=== PATIENT | male | born 1965 | race Caucasian/White ===

== ENCOUNTER 2019-09-03 05:51 | Day surgery (SDC) | payer BC ==
[2019-09-03] MEDS ORDERED: GLYCOPYRROLATE 0.2 MG/ML ML IV ONE (05:52)
[2019-09-03] MEDS ORDERED: DEXAMETHASONE 4 MG/ML 1ML VIAL IVP ONE (05:52)
[2019-09-03] MEDS ORDERED: ROPIVACAINE HCL (NAROPIN) /PF 5MG/ML 20ML VIAL IV ONE (05:52)
[2019-09-03] MEDS ORDERED: LIDOCAINE 2% MDV (20MG/ML) 20ML VIAL IV ONE (05:52)
[2019-09-03] MEDS ORDERED: MIDAZOLAM HCL 2MG/2ML VIAL IV ONE (05:52)
[2019-09-03] MEDS ORDERED: PROPOFOL 10 MG/ML VIAL IV ONE (05:52)
[2019-09-03] MEDS ORDERED: METOCLOPRAMIDE 10 MG TABLET PO ONE (06:00)
[2019-09-03] MEDS ORDERED: FAMOTIDINE 20MG TABLET PO ONE (06:00)
[2019-09-03] MEDS ORDERED: ACETAMINOPHEN 500 MG TABLET PO ONE (06:00)
[2019-09-03] MEDS ORDERED: VANCOMYCIN 1GM/200ML PREMIX 1 GM/200 ML PIGGYBACK IVPB ONE (06:00)
[2019-09-03] MEDS ORDERED: CEFAZOLIN 2 Gram 2 GM/50 ML BAG IVPB ONE (06:00)
[2019-09-03] MEDS ORDERED: CEFAZOLIN 1 Gram 1 GM/50 ML BAG IVPB ONE (06:00)
[2019-09-03] MEDS ORDERED: SCOPOLAMINE 1 PATCH TDSY TD ONE (06:00)
[2019-09-03 07:24] LABS: ABO GROUP A
[2019-09-03 07:25] LABS: ANTIBODY SCREEN NEGATIVE (NEGATIVE); RH TYPE NEGATIVE
[2019-09-03] MEDS ORDERED: BISACODYL 10 MG SUPP RC PRN (08:03)
[2019-09-03] MEDS ORDERED: HYDROCODONE/APAP 5/325MG TABLET PO PRN ×2 (08:03)
[2019-09-03] MEDS ORDERED: DIPHENHYDRAMINE HCL 25 MG CAPSULE PO PRN (08:03)
[2019-09-03] MEDS ORDERED: ACETAMINOPHEN W/ CODEINE 300MG/30MG TABLET PO PRN ×2 (08:03)
[2019-09-03] MEDS ORDERED: PROMETHAZINE HCL 25 MG TABLET PO PRN (08:03)
[2019-09-03] MEDS ORDERED: HYDROMORPHONE HCL 2 MG/ML VIAL IM PRN ×2 (08:03)
[2019-09-03] MEDS ORDERED: KETOROLAC 30 MG/ML VIAL IVP PRN (08:03)
[2019-09-03] MEDS ORDERED: ACETAMINOPHEN W/ CODEINE 300MG/60MG TABLET PO PRN (08:03)
[2019-09-03] MEDS ORDERED: ONDANSETRON 4 MG ODT TABLET SL PRN (08:03)
[2019-09-03] MEDS ORDERED: NALOXONE 0.4 MG/1 ML VIAL IVP PRN (08:03)
[2019-09-03] MEDS ORDERED: DEXTROSE 5 % AND 0.9 % NACL 1,000 ML IV PRN (08:03)
[2019-09-03] MEDS ORDERED: ACETAMINOPHEN 325 MG TAB PO PRN (08:03)
[2019-09-03] MEDS ORDERED: TRAMADOL HCL 50 MG TABLET PO PRN ×2 (08:03)
[2019-09-03] MEDS ORDERED: HYDROCODONE/APAP 7.5/325MG TABLET PO PRN (08:03)
[2019-09-03] MEDS ORDERED: MAGNESIUM HYDROXIDE 30 ML UDC PO PRN (08:03)
[2019-09-03] MEDS ORDERED: METOCLOPRAMIDE 10 MG TABLET PO PRN (08:03)
[2019-09-03] MEDS ORDERED: AL HYDROX/MAG HYDROX 30ML UD PO PRN (08:03)
[2019-09-03] MEDS ORDERED: RINGERS SOLUTION,LACTATED 1,000 ML IV ONE ×3 (08:09→09:14)
[2019-09-03] MEDS ORDERED: TRANEXAMIC ACID 1,000 MG/10 ML ML IU ONE (08:31)
[2019-09-03] MEDS ORDERED: BUPIVACAINE LIPOSOME 266MG/20ML VIAL IU ONE (08:31)
[2019-09-03] MEDS ORDERED: BUPIVACAINE 0.5% W/EPI MPF 30 ML VIAL SQ ONE (08:31)
[2019-09-03] MEDS ORDERED: VANCOMYCIN HCL 1 GM VIAL IR ONE (08:31)
[2019-09-03] MEDS ORDERED: TRANEXAMIC ACID 1,000 MG/10 ML ML IVPB ONE (08:31)
[2019-09-03] MEDS ORDERED: VANCOMYCIN HCL 1 GM VIAL IU ONE (08:44)
[2019-09-03] MEDS ORDERED: DOCUSATE SODIUM 100 MG CAPSULE PO SCH (10:00)
[2019-09-03] MEDS ORDERED: VANCOMYCIN 500MG/100ML PREMIX 500 MG/100 ML PIGGYBACK IVPB SCH (11:00)
--- NOTE | 2019-09-03 13:29 | Rehab Evaluation ---
Patient Information - Patient Information Diagnosis: L knee DJD Ordered Treatment: PT Evaluate and Treat Status: Initial Evaluation Surgery: Yes (L knee TKA) Past Medical/Surgical Hx: PAST MEDICAL/SURGICAL HISTORY Past Surgical History BACK MELITON CSCOPE LEFT ELBOW SX PMH - Respiratory Hx Respiratory Disorders No PMH - Cardiovascular Hx Cardiovascular Disorders Yes Hx Edema Yes: knee lt Hx Hypertension Yes: meds good control Hx Irregular Heartbeat Yes: "double heartbeat"-5 yrs ago, none since Exercise Tolerance Fair PMH - Neuro Hx Neurological Disorders No PMH - GI Hx Gastrointestinal Disorders Yes Hx Irritable Bowel Yes Comment: constipation issues PMH - Hx Genitourinary Disorders Yes Hx Prostate Problems Yes: " alittle enlargement" PMH - Endocrine Hx Endocrine Disorders No PMH - Musculoskeletal Hx Musculoskeletal Disorders Yes Hx Arthritis Yes: LEFT KNEE Hx Osteoporosis Yes PMH - Psych Hx Psychiatric Problems No PMH - Hematology/Oncology Hx Hematology/Oncology No Disorders Premorbid Status: Detail (The patient lives with significant other in a one story house with 2 steps to enter and no handrail. The bathroom is equipped with: a tub/shower combination,shower bench, grab bar in tub, standard height toilet seat with a riser seat with handles. The patient has a standard walker, crutches and single point cane.) Precautions: [place], Fall, Other (WBAT on the L LE.) - Time With Patient Treatment Procedures: Detail (Initial Evaluation, low complexity) Subjective Information - Subjective Information Per Patient (The patient has complaints of L knee pain level 5 at the highest.) Objective Data - Mental Status Patient Orientation: Oriented x3 - Visual Perception Appears within normal limits for therapeutic activities - ROM Not within normal limits (The patient's L knee AROM is limited s/p surgery. All other LE AROM is WNL.) - Strength/Tone Not within normal limits (The patient's L LE strength was not tested s/p suregery however is functional.) - Bed Mobility Independent (The patient is independent with supine to and from sit transfer.) - Transfers Independent (The patient was independent with sit to and from stand transfer.) - Balance Balance Sitting: Good Balance Standing: Good - Gait Detail (The patient ambulated with front wheeled walker 100 feet x 1 WBAT on L LE independently. The patient ambulated on three steps with use of folded walker and one railing with supervision for safety. The patient's observed pt. ambulating on stairs and was shown how she could assist the patient by using her arm as a railing.) Therapy Assessment - Therapy Assessment Detail (The patient was independent with bed mobility, ambulation and transfers. Car transfers were reviewed with pt. and his . The patient has met all inpt. PT goals and is discharged from inpt. PT.) Patient Education - Patient Education Teaching Topic: Exercise/Activity (The patient completed TKA HEP: seated heelslides, ankle pumps, quad sets, hamstring sets, gluteal sets and SLR.) Response: Return Demonstration Teaching Method: Discussion, Demonstration, Handout Teaching Recipient: Patient Barriers To Learning: None Problem List - Problem List Physical Therapy Problem List: Detail (Decreased L knee AROM and decreased L LE strength.) Goals - Goals Physical Therapy Goals: The patient has met all inpt. PT goals. Plan - Plan Physical Therapy Plan: The patient is discharged from inpt. PT and is to continue with Home PT.
--- NOTE | 2019-09-03 13:31 | Operative Note ---
DATE OF SURGERY:; 09/03/2019 PREOPERATIVE DIAGNOSIS: END STAGE RIGHT KNEE ARTHROSIS. POSTOPERATIVE DIAGNOSIS: END STAGE RIGHT KNEE ARTHROSIS. OPERATION: TOTAL RIGHT KNEE ARTHROPLASTY. SURGEON: Shan Slater M.D. ANESTHESIA: Spinal. ANESTHESIA PROVIDER: MAICOL Ramsay CRNA COMPLICATIONS: None. BLOOD LOSS: Minimal. OPERATIVE FINDINGS: [id number] medial compartment arthrosis and Grade 4 chondromalacia medial femoral condyle. COMPONENTS PLACED: [employer] II Oxinium total knee arthroplasty system size 9 femoral component, a size 8 tibial baseplate, 11 mm thick tibial poly insert and 38 mm cemented patellar component. INDICATIONS: This is a 53-year-old male who has had extensive nonoperative and operative treatments on the knees, multiple injections steroid, and he has had arthroscopic debridement to no avail. He has had continuous persistent pain and dysfunction in his knee and he wished to proceed with knee replacement. At this point he had a full thickness Grade 4 lesion in the medial femoral condyle as well. I explained all risks and benefits of surgery in detail for the diagnosis and procedure including, but not limited to infection, nerve injury, vessel injury, persistent pain, stiffness, numbness, tingling in the knee, periprosthetic fracture, need for resection arthroplasty if components become infected or loosen, nerve injury, vessel injury, blood clot and need for anticoagulation to prevent blood clots and risks associated with the use of these medications. All of his questions were answered. Rehab course was outlined. He agreed to proceed. PROCEDURE: The patient was brought to the Operating Room, placed in the supine position, prepped for surgery. Spinal anesthesia was induced. The right lower extremity and knee were prepped and draped in sterile fashion. The right knee was prepped again with ChloraPrep after it was draped. Intraoperative timeout was performed. Next, the leg was exsanguinated with Esmarch. No tourniquet was used. The knee was flexed. Next, an anterior incision was marked over the knee and it was infiltrated with 0.5% Marcaine with Epinephrine, Exparel and tranexamic acid mixture which we used throughout the entire case for each level and we used Aquamantys electrocautery with each level. Next, the skin and subcutaneous tissue was dissected down using Aquamantys again, we incised the capsule medially along the medial border of the patella to the tibial tubercle. Incised the vastus medialis in line with its fibers using medial lateral approach. Everted the patella partially, resected the retropatellar fat pad. Everted the patella, elevated the capsule subperiosteally and medially. Next we flexed the knee, we had [id number] medial compartment arthrosis. We removed any remaining ACL and menisci anteriorly. Drilled intracondylar drill, inserted the intramedullary guide miles, 6-degree cutting block, aligned off the distal femoral condyles, and pinned it in the +2 mm position and cut the distal femoral condyles. Next we placed a sizing jib on the distal femoral condyle and sized it to be right on size 9 larger size. Through the previous placed pin holes, we placed the 5-in-1 cutting jig, we dilated the anterior cut all the way +2 mm anterior so it would come out flush without notching. We cut that cut, it was good flush cut and then pinned it, we cut the remainder of chamfer cuts in the usual fashion. Next we placed a size 9 femoral component, centered it, pinned, removed osteophytes off the periphery, inserted a resection collet, and reamed down box Osteomed out the cruciate bone block. Next, we turned our attention to the tibia, placed the external alignment jig in the tibia exposing the spikes of the external alignment jig in the tubercular groove 2 fingerbreadths distal to the anterior tibial cortex close to the posterior slope. We referenced for a 7 mm cut the lateral plateau and we pinned the cutting jib provisionally with anterior and posterior pins. Rechecked alignment with a drop miles,, centered on the tibial anatomic axis and cross pinned the cutting jig to complete its fixation verifying the orientation of the cut. We cut the tibia. We removed any remaining menisci. We removed osteophytes off the posterior femoral condyles. Checked the flexion/extension gaps and sized it up to a 11 mm thick poly insert and this allowed for 1-2 mm of varus/valgus laxity and flexion/extension. Overall alignment cuts in extension was anatomic in valgus orientation with alignment miles centered on the hip joint and ankle joint. Next we took the knee in flexion, we sized the tibial baseplate to be a size 8. We replaced all trial components, set the tibial baseplate rotation again extension using the alignment miles centered on the hip joint and ankle joint. Marked electrocautery islas off the laser islas and tibial baseplate. Attention was turned to the patella, and we measured the patella to be 31 mm thick, the largest size we had available for the cutting jig would set the cutting jig at 22 mm. We cut the patella, remeasured right on on 22 to allow for a 9 mm thick poly insert. Transferred off the lateral patellar facet, it was sized to be 38 and medialized as much as possible, drilled thee peg holes, placed the trial patellar component and then mixed cement. The patella tracked nicely handsfree, full extension, and flexion to 140 degrees, again symmetric flexion /extension gaps were found. Next, removing all trial components, change globes, brought in a clean sheet, copiously irrigated with pulse lavage antibiotic solution all bony surfaces. Cauterized again, no Aquamantys in the posterior capsule and recesses. Placed a bone plug in the femoral canal hole and used CarboJet to dry off the tibial bone surface prior to cementation and did the tibia first. We impacted down the tibial component pre-coated both surfaces, removing excess cement and then the femoral component in the same fashion. We placed the trial tibial poly liner on the extension, dried it off and then inserted the patellar component and clamped that down until the cement hardened. Once the cement was hardened, we took the knee in flexion, distracted the knee with the bone hook and sponge and removed all trial components. We irrigated copiously, Aquamantys again in the posterior capsule and injected our mixture again in the posterior capsule with several sticks and periosteum working out superficially and then remove any excess cement and inserted our real tibial poly insert, verified it was interlocked medially and laterally, and found the range of motion to be the same. Next, placed the knee in flexion, injected the remainder of our mixture superficially now and then closed the capsule in flexion with running #2 Quill suture and [id number] #2 Vicryl, irrigated it again with Aquamantys again and closed the skin securely with several buried interrupted 2-0 Vicryl. A sterile dressing was applied with RAEGAN dressing and WALE wrap. The patient tolerated the procedure well. No intraoperative complications. Sponge, needle, and blade counts correct. Recovery Room stable. Neurovascular intact. Discharged as an outpatient. Will have home therapy nurse follow-up in two weeks. JOB NUMBER: [id number] MTDD
--- NOTE | 2019-09-03 14:27 | Rehab Evaluation ---
Patient Information - Patient Information Diagnosis: L knee DJD Ordered Treatment: OT Evaluate and Treat Status: Initial Evaluation Surgery: Yes (L knee TKA) Date of Surgery: 09/03/19 Past Medical/Surgical Hx: PAST MEDICAL/SURGICAL HISTORY Past Surgical History BACK MELITON CSCOPE LEFT ELBOW SX PMH - Respiratory Hx Respiratory Disorders No PMH - Cardiovascular Hx Cardiovascular Disorders Yes Hx Edema Yes: knee lt Hx Hypertension Yes: meds good control Hx Irregular Heartbeat Yes: "double heartbeat"-5 yrs ago, none since Exercise Tolerance Fair PMH - Neuro Hx Neurological Disorders No PMH - GI Hx Gastrointestinal Disorders Yes Hx Irritable Bowel Yes Comment: constipation issues PMH - Hx Genitourinary Disorders Yes Hx Prostate Problems Yes: " alittle enlargement" PMH - Endocrine Hx Endocrine Disorders No PMH - Musculoskeletal Hx Musculoskeletal Disorders Yes Hx Arthritis Yes: LEFT KNEE Hx Osteoporosis Yes PMH - Psych Hx Psychiatric Problems No PMH - Hematology/Oncology Hx Hematology/Oncology No Disorders Premorbid Status: Detail (The patient lives with significant other in a one story house with 2 steps to enter and no handrail. The bathroom is equipped with a tub/shower combination, shower bench, grab bar and hand held shower as well as a standard height toilet seat with a riser seat with handles. The patient has a standard walker with a basket, crutches and single point cane.) Social History: Detail (The patient is typically responsible for meal prep and his significant other is responsible for home mgmt and laundry tasks.) Precautions: [place], Fall, Other (WBAT on the L LE.) - Time With Patient Total Time Spent With Patient (Min): 35 Treatment Procedures: Detail (OT eval low complexity) Subjective Information - Subjective Information Per Patient, Other (significant other) Objective Data - Pain Pain Present: Yes (12/15) - Mental Status Patient Orientation: Oriented x3 - Visual Perception Appears within normal limits for therapeutic activities - ROM Within normal limits (Eric UE AROM WNL) - Strength/Tone Within normal limits (Eric UE strength WNL) - Coordination Appears within normal limits for therapeutic activities - Bed Mobility Independent (Ind with supine to sit) - Transfers Independent (Ind with sit to stand from EOB and toilet heights.) - Balance Balance Sitting: Good Balance Standing: Good - Sensation Intact - Gait Detail (Pt ambulating in room and hallway with standard walker and supervision.) - ADL's/IADL's Detail (Pt educated and able to demonstrate learning of modified LE dressing techniques including doffing slipper socks and donning underwear, socks, sweatpants and tennis shoes. Reviewed kitchen and shower modifications and safety, pt and S.O. verbalized understanding.) Therapy Assessment - Therapy Assessment Detail (Pt is Ind with modified LE dressing techniques.) Problem List - Problem List Occupational Therapy Problem List: Detail (No current IP OT problems identified.) Goals - Goals Occupational Therapy Goals: No current IP OT goals identified. Prognosis - Prognosis Good Plan - Plan Occupational Therapy Plan: Pt is discharged from IP OT at this time. Thank you for this referral.
== END 2019-09-03 15:45 | disposition home health service (06) ==
LOC: SUR 05:51 → MEDSURG 10:53 → SUR 15:45
PROVIDERS: ATTEND Orthopaedic Surgery
DX: M17.12 Unilateral primary osteoarthritis, left knee (principal); I10 Essential (primary) hypertension; M94.261 Chondromalacia, right knee
CPT/HCPCS: 76942; 86850; 86900; 86901; 94010; C1776; J1885; J3370; J7042; J7120